=== PATIENT | male | born 1950 | race Caucasian/White ===

== ENCOUNTER 2024-04-13 09:22 | Observation (INO) | payer MEDICARE, MEDICAID, SELFPAY ==
[2024-04-13] VITALS (8 sets, daily range): BP systolic 99–161; BP diastolic 56–89; PULSE 61–98; RESP 16–18; TEMP 36.3–37.2; O2SAT 94–100; BMI 26.4
--- NOTE | 2024-04-13 10:04 | EDS_ITS ---
HPI HPI - GI History of Present Illness Chief Complaint: Nausea/Vomiting/Diarrhea Informant: patient and spouse/S.O. Narrative Narrative: 73-year-old male presenting with nausea, vomiting, diarrhea that started yesterday after feeling malaised. The vomiting and diarrhea really started at night, and he has had more than 10 bouts of each throughout the night and feels miserable. He has had some abdominal cramping nonlocalized that resolves after either having diarrhea or vomiting temporarily. No known fevers or chills. No known sick contacts. No travel out of the area recently, no hospitalization in the past couple weeks although back in January he had a cardiac ablation and then was admitted for Tikosyn induction. He denies any hematochezia or hematemesis. No dyspnea or chest discomfort. History of abdominal herniorrhaph y no other surgeries and none recently. No recent antibiotics for anything. No history of C. difficile that he knows of. No suspicious food ingestion such as undercooked meats or raw fish [facility] Medical History (Updated 04/13/24 @ 15:[address] Kelley Lutz MD) PAF (paroxysmal atrial fibrillation) GERD (gastroesophageal reflux disease) BPH (benign prostatic hyperplasia) Hyperlipidemia Home Medications ?Medication ?Instructions ?Recorded ?Last Taken ?Type cholecalciferol (vitamin D3) 25 1,000 unit PO QDAY 04/13/24 Unknown History mcg (1,000 unit) tablet (Vitamin D3) dofetilide 250 mcg capsule 250 mcg PO BID 04/13/24 Unknown History finasteride 5 mg tablet 5 mg PO 1700 04/13/24 Unknown History magnesium oxide 500 mg capsule 500 mg PO BID 04/13/24 Unknown History metoprolol succinate 25 mg capsule 25 mg PO DAILY 04/13/24 Unknown History sprinkle, ext. release 24 hr omeprazole 20 mg capsule,delayed 20 mg PO DAILY 04/13/24 Unknown History release rivaroxaban 20 mg tablet (Xarelto) 20 mg PO DAILY 04/13/24 Unknown History tamsulosin 0.4 mg capsule (Flomax) 0.4 mg PO DAILY 04/13/24 Unknown History Allergy/AdvReac Type Severity Reaction Status Date / Time No Known Allergies Allergy Verified 04/13/24 09:23 Surgical History History of prior ablation treatment Hx of knee surgery H/O transurethral resection of prostate Social History Smoking Status: Never smoker ROS ROS ED Constitutional Constitutional ED: Reports fatigue and malaise; Denies chills or fever(s) Eyes Eyes: Denies change in vision or diplopia ENT ENT ED: Denies rhinorrhea or sore throat Cardiovascular Cardiovascular: Denies chest pain or palpitations Respiratory/Chest Respiratory/Chest: Denies cough or dyspnea Gastrointestinal Gastrointestinal: Reports abdominal pain, diarrhea, nausea and vomiting; Denies hematemesis, hematochezia or melena Genitourinary Genitourinary ED: Denies dysuria or hematuria Musculoskeletal Musculoskeletal: Denies back pain or neck pain Integumentary Denies abscess or rash Neurologic Neurologic: Denies headache(s), paresthesias or weakness EXAM Physical Exam Const Vital Signs: 04/13/24 09:22 04/13/24 11:20 04/13/24 14:41 Temperature 97.4 F L 98.9 F Temperature Source Temporal Pulse Rate 61 67 69 Respiratory Rate 16 18 18 Blood Pressure 161/89 H 128/61 H 143/76 H Blood Pressure Mean 113 83 98 Pulse Ox 98 100 96 Oxygen Delivery Method Room Air Room Air Positive well nourished and well developed General Appearance ED: well developed and NAD HEENT Reports moist mucous membranes normocephalic and atraumatic Eyes PERRL and EOMs intact bilaterally Neck full ROM and supple Resp normal respiratory effort and clear to auscultation bilaterally Cardio regular rate, regular rhythm and no murmurs Rate: Negative for tachycardic GI non-tender and non-distended Auscultation: normoactive bowel sounds Palpation: soft Back/Spine no CVA tenderness General Back: other FROM Extremity normal to inspection General Extremety ED: Negative for edema, pulses abnormal or tenderness General Extremity: Negative for edema or pulses abnormal Neuro oriented x3, CN's II-XII intact bilaterally and no sensory deficits noted Sensorium / Orientation: awake and alert Motor Exam: strength 5/5 throughout Skin no rashes or lesions noted and no wounds MDM MDM MDM Narrative Medical decision making narrative: Patient presenting with syndrome consistent with gastroenteritis, there has been an outbreak of norovirus in the area recently, this patient may have that. He does not have any red flags for C. difficile or other bacterial invasive enteritis. However that does not mean they are not possible. The patient has had more nausea and vomiting here in emergency department and diarrhea. Labs are unremarkable except for some prerenal azotemia, but on reevaluation after ordering dicyclomine and Zofran and fluids, he is saying that he has severe pain more than he did at home. Therefore we sent him for a CT, I reviewed the images and report which I agree with, it is negative for any acute. Diverticulosis noted. He was given pain and nausea medication more so, but still unable to keep fluids down. Therefore discussed with hospitalist for inpatient stay. Lab Data Attestation: I reviewed the patient's lab results. Labs: Laboratory Results - last 24 hr 04/13/24 09:40 WBC 8.5 RBC 4.86 Hgb 14.6 Hct 44.1 MCV 90.7 MCH 30.0 MCHC 33.1 RDW Std Deviation 45.5 H RDW Coeff of Oliver 13.6 Plt Count 170 MPV 10.2 Immature Gran % (Auto) 1.300 H Neut % (Auto) 72.0 H Lymph % (Auto) 17.7 L Ness % (Auto) 8.0 Eos % (Auto) 0.5 Baso % (Auto) 0.5 Absolute Neuts (auto) 6.1 Absolute Lymphs (auto) 1.51 Nucleated RBC % 0 Sodium 138 Potassium 3.6 Chloride 104 Carbon Dioxide 27.0 Anion Gap 7 BUN 21 H Creatinine 1.15 Estim Creat Clear Calc 64.67 Est GFR (MDRD) Af Amer 80 Est GFR (MDRD) Non-Af 66 BUN/Creatinine Ratio 18.3 Glucose 122 H Calcium 9.4 Total Bilirubin 0.50 AST 17 ALT 30 Alkaline Phosphatase 71 Total Protein 7.4 Albumin 3.7 Globulin 3.7 Albumin/Globulin Ratio 1.0 Radiography Diagnostic Testing: Clinical Impression(s) from Imaging Studies Abdomen/Pelvis CT 04/13/24 11:14 IMPRESSION: 1. No acute findings in the abdomen or pelvis. 2. Diverticulosis along the sigmoid colon and lower descending colon without diverticulitis. 3. Enlarged central lobe of the prostate gland is at least BPH. 4. 5.8 cm cyst in segment 2 of the liver parenchyma and 1.1 cm cyst in segment 8 of the liver parenchyma are simple cysts. Electronically Signed: Andrzej Castillo MD at 12:39 EST , Management Discussion w/another healthcare provider: Hospitalist Discharge Plan Dx/Rx/DC Orders Clinical Impression: Intractable vomiting, Mild dehydration, Gastroenteritis Disposition Disposition: Acute Care Hospital [facility]
[2024-04-13 10:05] LABS: Absolute Lymphocyte Count 1.51 X10^3/uL (0.83-4.51); Absolute Neutrophil Count 6.1 X10^3/uL (2.0-7.7); Basophil# 0.04 X10^3/uL; Basophil% 0.5 % (0-1); Eosinophil# 0.04 X10^3/uL; Eosinophils% 0.5 % (0-5); Hematocrit 44.1 % (40-54); Hemoglobin 14.6 g/dL (13.0-16.5); Lymphocyte # 1.51 X10^3/ul (0.83-4.51); Lymphocyte % 17.7 % (19-41); Mean Corp Hgb Conc 33.1 g/dL (32-36); Mean Corpuscular Volume 90.7 fL (80-94); Mean Platelet Vol. 10.2 fl (6.2-12.0); Monocyte# 0.68 X10^3/uL; NRBC Flagged by Analyzer 0 % (0-5); Neutrophil # 6.14 X10^3/uL (2.7-7.7); Platelet Count 170 K/mm3 (150-450); RBC Distribution Width CV 13.6 % (11.6-14.6); RBC Distribution Width SD 45.5 fl (35.1-43.9); Red Blood Count 4.86 M/mm3 (4.6-6.2); White Blood Count 8.5 K/mm3 (4.4-11.0)
[2024-04-13] MEDS: 0.9% Normal Saline (1000mL) 1,000 ML 999 ML IV (10:09)
[2024-04-13] MEDS: Ondansetron 4 MG/2 ML Vial IV ×2 (10:09→12:47)
[2024-04-13 10:21] LABS: AST(SGOT) 17 U/L (15-37); Alanine Aminotransfer ALT/SGPT 30 U/L (16-61); Albumin, Serum 3.7 g/dL (3.2-5.0); Alkaline Phosphatase 71 U/L (45-117); Anion Gap 7 (5-15); BUN 21 mg/dL (7-18); BUN/Creat Ratio 18.3 RATIO (10-20); Calcium,Total 9.4 mg/dL (8.5-10.1); Chloride 104 mmol/L (98-107); Creatinine, Serum 1.15 mg/dL (0.70-1.30); EST Glomerular Filtration Rate 66 mL/min (>60); Est Glom Filt Rate - Afr Amer 80 mL/min (>60); Estimated Creatinine Clearance 64.67 ml/min; Globulin 3.7 g/dL (2.2-4.2); Glucose 122 mg/dL (74-106); Potassium 3.6 mmol/L (3.5-5.1); Protein, Total 7.4 g/dL (6.4-8.2); Sodium Level 138 mmol/L (136-145)
[2024-04-13] MEDS: Metoclopramide 10 MG/2 ML Vial 5 MG IV ×2 (11:10→14:39)
--- NOTE | 2024-04-13 11:14 | CT_ITS ---
EXAM: CT ABDOMEN AND PELVIS WITHOUT INTRAVENOUS CONTRAST CLINICAL INDICATION: n/v/d, severe lower abd pain TECHNIQUE: Helically acquired images were obtained of the abdomen and pelvis without intravenous contrast. This CT exam was performed using one or more of the following dose reduction techniques: automated exposure control, adjustment of the mA and/or kV according to patient size, and/or use of iterative reconstruction technique. RADIATION DOSE: CTDIvol = 11.90 mGy, DLP = 639.41 mGy-cm COMPARISON: No relevant prior studies available. FINDINGS: LOWER THORAX: Pulmonary hyperinflation with flattening of the hemidiaphragms. No cardiomegaly. No significant pericardial effusion. ABDOMEN: LIVER: 5.8 cm cyst in segment 2 of the liver parenchyma with CT number of 3.1 Hounsfield units. 1.1 cm low-attenuation cyst in segment 8 of the liver parenchyma with CT number of -0.55 Hounsfield units. GALLBLADDER AND BILE DUCTS: Unremarkable. No calcified gallstones. No gallbladder distention or wall edema. No intra- or extrahepatic biliary ductal dilation. PANCREAS: Unremarkable. No focal cystic mass. SPLEEN: Unremarkable. Normal size without focal cystic or solid mass. ADRENALS: Unremarkable. No nodules. KIDNEYS AND URETERS: Unremarkable. Normal renal size and position. No hydronephrosis. STOMACH AND BOWEL: Diverticula in the sigmoid colon and lower descending colon without diverticulitis. No stomach or bowel distention. PELVIS: APPENDIX: Normal. BLADDER: See below. REPRODUCTIVE: Enlarged central lobe of the prostate gland protruding into the posterior urinary bladder wall is at least BPH. ABDOMEN and PELVIS: INTRAPERITONEAL SPACE: Unremarkable. No ascites or other fluid collection. No free air. BONES/JOINTS: Unremarkable. No suspicious lytic or blastic abnormality. SOFT TISSUES: Unremarkable. No discrete abdominal or pelvic wall hernia. VASCULATURE: Unremarkable. Abdominal aorta is non-dilated. LYMPH NODES: Unremarkable. No enlarged lymph nodes. CT/Abdomen/Pelvis without Cont IMPRESSION: 1. No acute findings in the abdomen or pelvis. 2. Diverticulosis along the sigmoid colon and lower descending colon without diverticulitis. 3. Enlarged central lobe of the prostate gland is at least BPH. 4. 5.8 cm cyst in segment 2 of the liver parenchyma and 1.1 cm cyst in segment 8 of the liver parenchyma are simple cysts. Electronically Signed: Andrzej Castillo MD at 12:39 EST ,
[2024-04-13] MEDS: Morphine 2 MG/ML Syringe IV ×2 (11:18→14:40)
[2024-04-13] MEDS: Dicyclomine 20 MG/2 ML Vial IM (11:34)
[2024-04-13] MEDS: 0.9% Normal Saline (1000mL) 1,000 ML 200 ML IV (14:39)
--- NOTE | 2024-04-13 15:05 | PCM.HP.STD ---
HPI - General General Date of Admission: 04/13/24 Date of Service: 04/13/24 Chief Complaint: N/V/D HPI Narrative The patient is a 73 y/o M w/ PMHx: BPH with obstructive pathology, GERD, PAF who presents to the [facility] ED on 04/13/24 with history of persistent nausea, emesis and diarrhea as well as general fatigue and malaise starting the day prior with more than 10 bouts through the evening with abdominal cramping associated although this resolves after his bouts of nausea and emesis temporarily with no recent fevers or chills no any recent ill contacts with no recent antibiotic therapies or abnormal food ingestion but not improving prompting eventual ED evaluation be cautious. Patient's is present and denies having any symptoms herself. Workup in the ED included T97.4, heart rate 61, BP 161/89, respiratory rate 16, 98% on room air with most recent repeat vitals T98.9, heart rate 69, BP 143/76, respiratory rate 18, 96% room air, CBC with WBC 8.5, hemoglobin 14.6, platelet 170 with increased immature granulocytes, CMP with BUN/creatinine 21/1.15, GFR 66, glucose 122 otherwise unremarkable, CT abdomen and pelvis with no acute findings, diverticulosis along the sigmoid colon and lower descending colon without any diverticulitis, enlarged central lobe of the prostate gland consistent with BPH at least, 5.8 cm cyst in the segment 2 liver parenchyma and 1.1 cm cyst in the segment 8 of the liver parenchyma consistent with simple cyst. In the ED patient ministered Zofran 4 mg IV x 2, morphine 2 mg IV x 2, Reglan 5 mg IV x 2, Bentyl 20 mg p.o. x 1 followed up by 20 mg IM x 1 in addition to IV fluids with a total of 2 L. [facility] Medical History PAF (paroxysmal atrial fibrillation) GERD (gastroesophageal reflux disease) BPH (benign prostatic hyperplasia) Hyperlipidemia Home Medications ?Medication ?Instructions ?Recorded ?Last Taken ?Type cholecalciferol (vitamin D3) 25 1,000 unit PO QDAY 04/13/24 Unknown History mcg (1,000 unit) tablet (Vitamin D3) dofetilide 250 mcg capsule 250 mcg PO BID 04/13/24 Unknown History finasteride 5 mg tablet 5 mg PO 1700 04/13/24 Unknown History magnesium oxide 500 mg capsule 500 mg PO BID 04/13/24 Unknown History metoprolol succinate 25 mg capsule 25 mg PO DAILY 04/13/24 Unknown History sprinkle, ext. release 24 hr omeprazole 20 mg capsule,delayed 20 mg PO DAILY 04/13/24 Unknown History release rivaroxaban 20 mg tablet (Xarelto) 20 mg PO DAILY 04/13/24 Unknown History tamsulosin 0.4 mg capsule (Flomax) 0.4 mg PO DAILY 04/13/24 Unknown History Allergy/AdvReac Type Severity Reaction Status Date / Time No Known Allergies Allergy Verified 04/13/24 09:23 Family History (Updated 04/13/24 @ 15:[address] Kelley Lutz MD) Father No problems noted. Mother Alzheimer dementia Surgical History History of prior ablation treatment Hx of knee surgery H/O transurethral resection of prostate Social History (Updated 04/13/24 @ 15:[address] Kelley uLtz MD) household members: spouse Smoking Status: Never smoker alcohol intake: current alcohol intake frequency: holidays/special occasions only substance use type: does not use ROS ROS Narrative Admission Review of Systems: CONSTITUTIONAL: No weight loss, fever, chills, + weakness or fatigue. HEENT: Eyes: No visual loss, blurred vision, double vision or yellow sclerae. Ears, Nose, Throat: No hearing loss, sneezing, congestion, runny nose or sore throat. SKIN: No rash or itching, lesions, wounds. CARDIOVASCULAR: No chest pain, chest pressure or chest discomfort, palpitations, edema, orthopnea, syncopal events. RESPIRATORY: No shortness of breath, cough or sputum, wheezing, hemoptysis. GASTROINTESTINAL: + Anorexia, nausea, vomiting, diarrhea, abdominal cramping. No melena, BRBPR. GENITOURINARY: No dysuria, frequency, urgency or retention. NEUROLOGICAL: No headache, dizziness, syncope, paralysis, ataxia, numbness or tingling in the extremities, focal weakness, change in bowel or bladder control, seizure. MUSCULOSKELETAL: + muscle, back pain, joint pain or stiffness. HEMATOLOGIC: No anemia. Easy bleeding/bruising. LYMPHATICS: No enlarged nodes. No history of splenectomy. PSYCHIATRIC: No history of depression or anxiety. ENDOCRINOLOGIC: No reports of sweating, cold or heat intolerance. No polyuria or polydipsia. ALLERGIES: No history of asthma, hives, eczema or rhinitis. Vital Signs Vital Signs Vital Signs: 04/13/24 09:22 04/13/24 11:20 04/13/24 14:41 Temperature 97.4 F L 98.9 F Temperature Source Temporal Pulse Rate 61 67 69 Respiratory Rate 16 18 18 Blood Pressure 161/89 H 128/61 H 143/76 H Blood Pressure Mean 113 83 98 Pulse Ox 98 100 96 Oxygen Delivery Method Room Air Room Air Weight Weight: 195 lb 2 oz Body Mass Index (BMI) 26.4 Physical Exam Narrative Physical Examination: General: Awake, alert, oriented x 3 and cooperative, laying on his side in the ED bed, fatigued and ill-appearing. Skin: Normal color, normal turgor, no icterus, no cyanosis except for occasional stage ecchymoses HEENT: AT/NC, EOMI, PERRLA, dry MM, no carotid bruits or JVD noted. Lungs: Mildly diminished, greater bases, proper effort, no rales, ronchi or wheezing. Heart: Regular rate and rhythm; no gallop, rub audible. Abdomen: Soft, NTTP, mildly distended tympanitic, hyperactive BS, no appreciated HSM. Extremities: No cyanosis, clubbing, or edema. Neurological: Patient awake, alert, oriented as noted, cognitive function intact; pupils equally reactive to light and accommodation, cranial nerves grossly normal, moving all 4 extremities, no focal deficits, strength moderately globally decreased secondary to acute presentation. Psychiatric: Affect appears flat, fatigued, ill-appearing, no acute evidence of depressive or anxiety feelings. Results Lab / Micro Data 04/13/24 09:40 04/13/24 09:40 Labs: Laboratory Results - last 24 hr 04/13/24 09:40: WBC 8.5, RBC 4.86, Hgb 14.6, Hct 44.1, MCV 90.7, MCH 30.0, MCHC 33.1, RDW Std Deviation 45.5 H, RDW Coeff of Oliver 13.6, Plt Count 170, MPV 10.2, Immature Gran % (Auto) 1.300 H, Neut % (Auto) 72.0 H, Lymph % (Auto) 17.7 L, Lewis % (Auto) 8.0, Eos % (Auto) 0.5, Baso % (Auto) 0.5, Absolute Neuts (auto) 6.1, Absolute Lymphs (auto) 1.51, Nucleated RBC % 0, Sodium 138, Potassium 3.6, Chloride 104, Carbon Dioxide 27.0, Anion Gap 7, BUN 21 H, Creatinine 1.15, Estim Creat Clear Calc 64.67, Est GFR (MDRD) Af Amer 80, Est GFR (MDRD) Non-Af 66, BUN/Creatinine Ratio 18.3, Glucose 122 H, Calcium 9.4, Total Bilirubin 0.50, AST 17, ALT 30, Alkaline Phosphatase 71, Total Protein 7.4, Albumin 3.7, Globulin 3.7, Albumin/Globulin Ratio 1.0 Imaging Radiology Impression Abdomen/Pelvis CT 04/13/24 11:14 IMPRESSION: 1. No acute findings in the abdomen or pelvis. 2. Diverticulosis along the sigmoid colon and lower descending colon without diverticulitis. 3. Enlarged central lobe of the prostate gland is at least BPH. 4. 5.8 cm cyst in segment 2 of the liver parenchyma and 1.1 cm cyst in segment 8 of the liver parenchyma are simple cysts. Electronically Signed: Andrzej Castillo MD at 12:39 EST , Assessment & Plan Assessment/Plan (1) Gastroenteritis: PLAN: Plan The patient is a 73 y/o M w/ PMHx: BPH with obstructive pathology, GERD, PAF who presents to the [facility] ED on 04/13/24 with history of persistent nausea, emesis and diarrhea as well as general fatigue and malaise starting the day prior with more than 10 bouts through the evening with abdominal cramping associated although this resolves after his bouts of nausea and emesis temporarily with no recent fevers or chills no any recent ill contacts with no recent antibiotic therapies or abnormal food ingestion but not improving prompting eventual ED evaluation be cautious. #1. N/V/D, Gastroenteritis: Will admit to MS, will continue aggressive hydration, will obtain c-diff, stool cx, O+P with repeat AM CBC. Will maintain on clear liquids until clinically improving. Will trial Haldol 0.5 mg IV x 1 given intractable nausea and if effective may consider dosing for an additional 2-3 doses. Will maintain on IV PPI. Will not start antibiotics at this time given unclear source pending stool studies as may be viral gastroenteritis. Anti-emetics, pain regimen PRN. #2. PAF: We will continue patient dofetilide as well as home Xarelto regimen and metoprolol as able, unfortunately with intractable nausea and vomiting if not improving may need to transition to subcu versus IV regimen temporarily if needed. #3. GERD: Given current presentation until clinically improving will maintain on IV PPI. #4. BPH with obstructive pathology: We will continue patient on Flomax and finasteride regimen #5. DVT prophylaxis: Will attempt to maintain on Xarelto however if unable to tolerate will transition to subcu regimen. Charges/Coding Visit Charges Inpatient E&M: 66090 Init Hosp L2
[2024-04-13 16:05] LABS: Magnesium 2.1 mg/dL (1.6-2.6); Phosphorus 2.9 mg/dL (2.5-4.9)
[2024-04-13] MEDS: 0.9% Normal Saline (1000mL) 1,000 ML 100 ML IV (18:56)
[2024-04-13] MEDS: Haloperidol Lactate 5 MG/ML Vial IV (18:56)
[2024-04-13] MEDS: Dofetilide 250 MCG Capsule PO (20:38)
[2024-04-13] MEDS: MELATONIN 3 MG TABLET PO (20:38)
[2024-04-13] MEDS: Dicyclomine 10 MG Capsule PO ×2 (20:38→23:37)
[2024-04-13] MEDS: Finasteride 5 MG Tablet PO (20:39)
[2024-04-13] MEDS: Acetaminophen 325 MG Tablet 650 MG PO (20:39)
[2024-04-13] MEDS: Pantoprazole Sodium 40 MG in 0.9% Normal Saline (100mL MB+) 100 ML 330 MG IV (20:41)
[2024-04-14 02:31] VITALS: PULSE 79
[2024-04-14 03:10] VITALS: BMI 26.1
[2024-04-14] MEDS: 0.9% Normal Saline (1000mL) 1,000 ML 100 ML IV (05:49)
[2024-04-14 05:51] VITALS: BP 120/69; PULSE 68; RESP 16; TEMP 36.7; O2SAT 95
[2024-04-14] MEDS: Dicyclomine 10 MG Capsule PO (06:02)
[2024-04-14 06:24] LABS: Absolute Lymphocyte Count 1.66 X10^3/uL (0.83-4.51); Absolute Neutrophil Count 6.2 X10^3/uL (2.0-7.7); Basophil# 0.02 X10^3/uL; Basophil% 0.2 % (0-1); Eosinophil# 0.02 X10^3/uL; Eosinophils% 0.2 % (0-5); Hematocrit 39.3 % (40-54); Lymphocyte # 1.66 X10^3/ul (0.83-4.51); Lymphocyte % 19.1 % (19-41); Mean Corp Hgb Conc 33.1 g/dL (32-36); Mean Corpuscular Hgb 29.5 pg (27.0-32.0); Mean Corpuscular Volume 89.3 fL (80-94); Mean Platelet Vol. 9.8 fl (6.2-12.0); Monocyte# 0.73 X10^3/uL; Monocyte% 8.4 % (0-10); NRBC Flagged by Analyzer 0 % (0-5); Neutrophil % 71.4 % (47-70); Platelet Count 161 K/mm3 (150-450); RBC Distribution Width CV 13.9 % (11.6-14.6); RBC Distribution Width SD 45.1 fl (35.1-43.9); White Blood Count 8.7 K/mm3 (4.4-11.0)
[2024-04-14 06:59] LABS: AST(SGOT) 16 U/L (15-37); Alanine Aminotransfer ALT/SGPT 25 U/L (16-61); Albumin, Serum 3.1 g/dL (3.2-5.0); Alkaline Phosphatase 54 U/L (45-117); Anion Gap 5 (5-15); BUN 13 mg/dL (7-18); BUN/Creat Ratio 12.4 RATIO (10-20); Calcium,Total 8.4 mg/dL (8.5-10.1); Chloride 112 mmol/L (98-107); Creatinine, Serum 1.05 mg/dL (0.70-1.30); EST Glomerular Filtration Rate 74 mL/min (>60); Est Glom Filt Rate - Afr Amer 89 mL/min (>60); Estimated Creatinine Clearance 70.83 ml/min; Glucose 96 mg/dL (74-106); Potassium 3.6 mmol/L (3.5-5.1); Protein, Total 6.1 g/dL (6.4-8.2); Sodium Level 140 mmol/L (136-145)
[2024-04-14 07:45] VITALS: O2SAT 94
[2024-04-14 08:00] VITALS: PULSE 72
[2024-04-14] MEDS: Pantoprazole Sodium 40 MG in 0.9% Normal Saline (100mL MB+) 100 ML 330 MG IV (08:06)
[2024-04-14 08:07] VITALS: PULSE 72
[2024-04-14] MEDS: Dofetilide 250 MCG Capsule PO (08:07)
[2024-04-14] MEDS: Metoprolol(XL)Succ 25 MG Tablet PO (08:07)
[2024-04-14 09:10] VITALS: BP 133/75; PULSE 74; RESP 18; TEMP 36.8; O2SAT 95
--- NOTE | 2024-04-14 10:11 | DCINST_ITS ---
Discharge Instructions Diet Discharge Diet: No restrictions DC O2, CPAP, BIPAP needs Home O2 Discharge instructions: No Dressing / Incision Discharge Activity: Return to Normal Activity Weight Bearing Status: Full weight bearing Follow Up Care Test Results: Test results from this visit will be discussed in further detail at your follow- up appointment, if applicable. Discharge Plan Admission Admit Date/Time: 04/13/24 15:07 Primary Reason for Your Visit: viral gastroenteritis Attending Provider: Arnie Sainz Primary Care Provider: Care Physician,No Primary Consulting Providers: Kelley Lutz Instructions Additional Instructions / Restrictions: You may take Imodium 4mg three or four times a day if needed for diarrhea if you desire Discharge Orders/Prescriptions Prescriptions: New ondansetron HCl 8 mg tablet 8 mg PO Q8H PRN (Reason: nausea and vomiting) Qty: 15 0RF Continued metoprolol succinate 25 mg capsule,sprinkle,ER 24hr 25 mg PO DAILY Xarelto 20 mg tablet 20 mg PO DAILY Rx Instructions: must administer with evening meal tamsulosin [Flomax] 0.4 mg capsule 0.4 mg PO DAILY finasteride 5 mg tablet 5 mg PO 1700 dofetilide 250 mcg capsule 250 mcg PO BID magnesium oxide 500 mg capsule 500 mg PO BID cholecalciferol (vitamin D3) [Vitamin D3] 25 mcg (1,000 unit) tablet 1,000 unit PO QDAY omeprazole 20 mg capsule,delayed release(DR/EC) 20 mg PO DAILY Referrals / Follow Up: Care Physician,No Primary [Primary Care Provider] - NOT,DEFINED [Non-Staff] - Disposition Disposition (needs filled in before D/C Order can be placed): Home, Self Care
--- NOTE | 2024-04-14 10:16 | PCM.DC.SUM ---
Providers Date of Admission: 04/13/24 Date of Discharge: 04/14/24 Primary Care Physician: No Primary Care Phys Reason For Visit: N/V/D, GASTRO Diagnosis Discharge Diagnosis (1) Gastroenteritis: Status: Acute Code(s): K52.9 - Noninfective gastroenteritis and colitis, unspecified Plan #1 Viral gastroenteritis #2 Dehydration Medications at Discharge Home Medications cholecalciferol (vitamin D3) 25 mcg (1,000 unit) tablet (Vitamin D3) 1,000 unit PO QDAY 04/13/24 dofetilide 250 mcg capsule 250 mcg PO BID 04/13/24 finasteride 5 mg tablet 5 mg PO 1700 04/13/24 magnesium oxide 500 mg capsule 500 mg PO BID 04/13/24 metoprolol succinate 25 mg capsule sprinkle, ext. release 24 hr 25 mg PO DAILY 04/13/24 omeprazole 20 mg capsule,delayed release 20 mg PO DAILY 04/13/24 rivaroxaban 20 mg tablet (Xarelto) 20 mg PO DAILY 04/13/24 tamsulosin 0.4 mg capsule (Flomax) 0.4 mg PO DAILY 04/13/24 ondansetron HCl 8 mg tablet 8 mg PO Q8H PRN nausea and vomiting #15 tabs 04/14/24 Hospital Course Operations None Procedures None Summary of Care Provided Minutes Spent on Discharge: 30 Hospital Course: This 73-year-old Latin male was seen in the emergency room at [facility] with complaints of nausea vomiting and diarrhea which started the day before. Patient denied any fevers or chills. Workup in the emergency room included CBC which showed a normal white blood cell count, chemistry profile showed a slightly elevated BUN and a normal creatinine. Abdominal and pelvic CT showed diverticulosis and hepatic cysts. Patient was placed in observation status on MedSurg 3 and given IV fluids, the next day his condition improved and he was able to eat, he had no nausea and vomiting or diarrhea. On 04/14/2024, patient was seen and examined: On examination he appeared in good health and spirits. Vital signs as documented. Skin warm and dry and without overt rashes. Neck without JVD, neck was supple, trachea midline, thyroid was normal. Lungs clear bilaterally, normal air movement was noted. Heart exam notable for regular rhythm, normal sounds and absence of murmurs, rubs or gallops. Abdomen unremarkable and without evidence of organomegaly, masses, or abdominal aortic enlargement. Bowel sounds are present, abdomen is not distended. Extremities nonedematous, no cyanosis was noted, no clubbing was noted. Neuro: Cranial nerves II through XII are grossly intact, no focal motor deficits were noted, sensation to light touch and pinprick intact, motor exam 5/5 throughout. Psych: Patient is alert and oriented x3, he does not appear anxious or depressed, he does not appear agitated. Patient was discharged home in stable condition on 04/14/2024 Weight / BMI Weight Weight: 87.36 kg Body Mass Index (BMI) 26.1 ABG / Lab / Microbiology Data 04/14/24 06:14 04/14/24 06:14 Laboratory: Laboratory Results - last 24 hr 04/13/24 09:40: Sodium 138, Potassium 3.6, Chloride 104, Carbon Dioxide 27.0, Anion Gap 7, BUN 21 H, Creatinine 1.15, Estim Creat Clear Calc 64.67, Est GFR (MDRD) Af Amer 80, Est GFR (MDRD) Non-Af 66, BUN/Creatinine Ratio 18.3, Glucose 122 H, Calcium 9.4, Phosphorus 2.9, Magnesium 2.1, Total Bilirubin 0.50, AST 17, ALT 30, Alkaline Phosphatase 71, Total Protein 7.4, Albumin 3.7, Globulin 3.7, Albumin/Globulin Ratio 1.0 04/14/24 06:14: WBC 8.7, RBC 4.40 L, Hgb 13.0, Hct 39.3 L, MCV 89.3, MCH 29.5, MCHC 33.1, RDW Std Deviation 45.1 H, RDW Coeff of Oliver 13.9, Plt Count 161, MPV 9.8, Immature Gran % (Auto) 0.700, Neut % (Auto) 71.4 H, Lymph % (Auto) 19.1, [place] % (Auto) 8.4, Eos % (Auto) 0.2, Baso % (Auto) 0.2, Absolute Neuts (auto) 6.2, Absolute Lymphs (auto) 1.66, Nucleated RBC % 0, Sodium 140, Potassium 3.6, Chloride 112 H, Carbon Dioxide 23.0, Anion Gap 5, BUN 13, Creatinine 1.05, Estim Creat Clear Calc 70.83, Est GFR (MDRD) Af Amer 89, Est GFR (MDRD) Non-Af 74, BUN/Creatinine Ratio 12.4, Glucose 96, Calcium 8.4 L, Total Bilirubin 0.60, AST 16, ALT 25, Alkaline Phosphatase 54, Total Protein 6.1 L, Albumin 3.1 L, Globulin 3.0, Albumin/Globulin Ratio 1.0 Radiography Diagnostic Testing: Radiology Impression Abdomen/Pelvis CT 04/13/24 11:14 IMPRESSION: 1. No acute findings in the abdomen or pelvis. 2. Diverticulosis along the sigmoid colon and lower descending colon without diverticulitis. 3. Enlarged central lobe of the prostate gland is at least BPH. 4. 5.8 cm cyst in segment 2 of the liver parenchyma and 1.1 cm cyst in segment 8 of the liver parenchyma are simple cysts. Electronically Signed: Andrzej Castillo MD at 12:39 EST Reading Location ID and State: [address] [place] [address] , Service support , D/C Instructions Discharge Diet: No restrictions Weight Bearing Status: Full weight bearing DC O2, CPAP, BIPAP Needs Home O2 Discharge instructions: No Meaningful Use Info Meaningful Use Meaningful Use Diagnoses (Choose all that apply): None applicable Ischemic Stroke Statin Dosing Therapy Reference: STATIN DOSE THERAPY REFERENCE: * Patients > 75 years receive moderate or high dose statin therapy. * Patients 75 years or YOUNGER should receive HIGH intensity statin dose unless contraindicated. You will be required to document reason for non-treatment if statin daily dose does not meet guidelines. HIGH DOSE STATIN THERAPY DAILY Atorvastatin > than or = to 40 mg Rosuvastatin > than or = to 20 mg Amlodipine + Atorvastatin > than or = to 2.5/40 mg Ezetimibe + Simvastatin 10/80 mg Simvastatin 80mg Discharge Plan Admission Admit Date/Time: 04/13/24 15:07 Primary Reason for Your Visit: viral gastroenteritis Attending Provider: Arnie Sainz Primary Care Provider: Care Physician,No Primary Consulting Providers: Kelley Lutz Instructions Additional Instructions / Restrictions: You may take Imodium 4mg three or four times a day if needed for diarrhea if you desire Discharge Orders/Prescriptions Prescriptions: New ondansetron HCl 8 mg tablet 8 mg PO Q8H PRN (Reason: nausea and vomiting) Qty: 15 0RF Continued metoprolol succinate 25 mg capsule,sprinkle,ER 24hr 25 mg PO DAILY Xarelto 20 mg tablet 20 mg PO DAILY Rx Instructions: must administer with evening meal tamsulosin [Flomax] 0.4 mg capsule 0.4 mg PO DAILY finasteride 5 mg tablet 5 mg PO 1700 dofetilide 250 mcg capsule 250 mcg PO BID magnesium oxide 500 mg capsule 500 mg PO BID cholecalciferol (vitamin D3) [Vitamin D3] 25 mcg (1,000 unit) tablet 1,000 unit PO QDAY omeprazole 20 mg capsule,delayed release(DR/EC) 20 mg PO DAILY Referrals / Follow Up: Care Physician,No Primary [Primary Care Provider] - NOT,DEFINED [Non-Staff] - Disposition Disposition (needs filled in before D/C Order can be placed): Home, Self Care Charges/Coding Visit Charges Inpatient E&M: 39690 Disch Hosp
== END 2024-04-14 11:43 | disposition home or self-care (01) ==
LOC: ED 15:17 → MS3 17:54
PROVIDERS: Admitting Provider Family Medicine; Emergency Provider Emergency Medicine; Visit Provider Internal Medicine
DX: A08.4 Viral intestinal infection, unspecified (principal); I48.0 Paroxysmal atrial fibrillation; E86.0 Dehydration; K21.9 Gastro-esophageal reflux disease without esophagitis; E78.5 Hyperlipidemia, unspecified; N40.1 Benign prostatic hyperplasia with lower urinary tract symptoms; Z79.899 Other long term (current) drug therapy; Z79.01 Long term (current) use of anticoagulants; N13.8 Other obstructive and reflux uropathy
CPT/HCPCS: 36415; 74176; 80053; 83735; 84100; 85025; 96361; 96365; 96366; 96375; 96376; 99221; 99284; A4216; G0378; J2405

== ENCOUNTER → 2024-06-26 | Outpatient (CLI) | payer MEDICARE, SELFPAY ==
[2024-06-26 07:11] LABS: Cholesterol 224 mg/dL (<=200); High Density Lipoprotein 40 mg/dL; Low Density Lipoprotein Calc. 131 mg/dL; Magnesium 2.1 mg/dL (1.5-2.2); Triglycerides 267 mg/dL; Very Low Density Lipoprotein 53 mg/dL (5-40); cholesterol:hdl ratio screen 5.63
== END | disposition home or self-care (01) ==
LOC: LAB 06:31
PROVIDERS: Referring Provider Internal Medicine Cardiovascular Disease; Visit Provider Internal Medicine Cardiovascular Disease
DX: E78.5 Hyperlipidemia, unspecified (principal); I48.0 Paroxysmal atrial fibrillation; I47.20 Ventricular tachycardia, unspecified; I48.19 Other persistent atrial fibrillation; Z98.890 Other specified postprocedural states
CPT/HCPCS: 36415; 80061; 83735

== ENCOUNTER → 2024-07-18 | Outpatient (CLI) | payer MEDICARE, SELFPAY ==
--- NOTE | 2024-07-18 17:20 | STRESSREP ---
Stress Test Report Date: 07/18/2024 Procedure: Exercise tolerance test/imaging study Indications: Dyspnea on exertion Consent: Per the patient Procedure: The patient exercised on a Alexander protocol for 4 minutes and 55 seconds achieving a peak heart rate of 126 bpm (85% predicted maximal heart rate) with a peak blood pressure 156/72 mmHg and a peak MET capacity of 7.0 METs. The baseline ECG demonstrated sinus rhythm with frequent PVCs. The peak exercise ECG sinus tachycardia with no ischemic changes. Frequent PVCs noted. The functional capacity was considered very good for age. There was no complaint of chest discomfort during exercise or recovery. The examination was discontinued secondary to target heart rate being achieved. The patient was injected with 14.6 mCi of technetium 99m Cardiolite and subsequently rest SPECT Cardiolite nuclear imaging was obtained in the horizontal long, vertical long, and short axis views. Post-exercise, the patient was injected with 44.3 mCi of technetium 99m Cardiolite and subsequently stress SPECT Cardiolite nuclear imaging was obtained in the horizontal long, vertical long, and short axis views. A gated Cardiolite study at peak stress was obtained. Rest and stress SPECT Cardiolite nuclear imaging status post realignment, normalization, and attenuation correction, demonstrates the appearance of relative uniform tracer uptake and myocardial perfusion appearing within normal limits. There is end systolic thickening and brightening. The gated Cardiolite study demonstrates myocardial thickening and inward wall motion. The reported LVEF is 63%. Impression: 1. Technically adequate (percent predicted maximal heart rate greater than 85%) exercise tolerance test 2. Peak exercise ECG with no ischemic changes. 3. Frequent PVCs at baseline and with exercise. No ventricular runs noted. 4. Rest and stress SPECT Cardiolite nuclear imaging demonstrate relative uniform tracer uptake and myocardial perfusion appearing within normal limits. 5. The gated Cardiolite study reports an LVEF of 63%. This note was generated with [employer] software. It may contain incorrect words, spelling, and punctuation that were not noted in checking the note before signing.
== END | disposition home or self-care (01) ==
LOC: CVS 06:54
PROVIDERS: Referring Provider Internal Medicine Cardiovascular Disease; Visit Provider Internal Medicine Cardiovascular Disease
DX: R06.09 Other forms of dyspnea (principal); I42.9 Cardiomyopathy, unspecified; R06.02 Shortness of breath
CPT/HCPCS: 78452; 93017; A9500; A4216

== ENCOUNTER 2024-08-16 11:26 | Emergency (ER) | payer MEDICARE, SELFPAY ==
[2024-08-16 11:27] VITALS: BP 150/75; PULSE 73; RESP 20; TEMP 36.6; O2SAT 100
[2024-08-16 12:14] LABS: Absolute Lymphocyte Count 1.15 X10^3/uL (0.83-4.51); Absolute Neutrophil Count 10.2 X10^3/uL (2.0-7.7); Basophil# 0.03 X10^3/uL; Basophil% 0.2 % (0-1); Eosinophil# 0.03 X10^3/uL; Eosinophils% 0.2 % (0-5); Hematocrit 43.6 % (40-54); Hemoglobin 14.7 g/dL (13.0-16.5); Lymphocyte # 1.15 X10^3/ul (0.83-4.51); Lymphocyte % 9.5 % (19-41); Mean Corp Hgb Conc 33.7 g/dL (32-36); Mean Corpuscular Hgb 29.8 pg (27.0-32.0); Mean Corpuscular Volume 88.3 fL (80-94); Mean Platelet Vol. 10.4 fl (6.2-12.0); Monocyte# 0.63 X10^3/uL; Monocyte% 5.2 % (0-10); NRBC Flagged by Analyzer 0 % (0-5); Neutrophil # 10.16 X10^3/uL (2.7-7.7); Neutrophil % 84.1 % (47-70); Platelet Count 164 K/mm3 (150-450); RBC Distribution Width CV 13.2 % (11.6-14.6); RBC Distribution Width SD 42.7 fl (35.1-43.9); Red Blood Count 4.94 M/mm3 (4.6-6.2); White Blood Count 12.1 K/mm3 (4.4-11.0)
--- NOTE | 2024-08-16 12:16 | EKG12_ITS ---
Test Reason : N/V Blood Pressure : */* mmHG Vent. Rate : 67 BPM Atrial Rate : 67 BPM P-R Int : 156 ms QRS Dur : 88 ms QT Int : 414 ms P-R-T Axes : 0 39 2 degrees QTcB Int : 437 ms Normal sinus rhythm Normal ECG Confirmed by LATA YARBROUGH, NICHOLAS ([id number]), school photograph editor MARJORIE AVILA ([id number]) on 08/20/2024 8:38:51 AM Referred By: Confirmed By: NICHOLAS GUIDO MD
[2024-08-16] MEDS: Ondansetron 4 MG/2 ML Vial IV (12:21)
[2024-08-16] MEDS: 0.9% Normal Saline (1000mL) 1,000 ML 999 ML IV (12:21)
[2024-08-16] MEDS: Pantoprazole Sodium 40 MG in 0.9% Normal Saline (100mL MB+) 100 ML 330 MG IV (12:35)
--- NOTE | 2024-08-16 12:48 | EX.ED.DYSGE1 ---
HPI History of Present Illness Chief Complaint: Nausea/Vomiting/Diarrhea Informant: patient and spouse/S.O. Narrative Narrative: Patient 74-year-old male with history of coronary artery disease, atrial fibrillation (on Xarelto), cardiomyopathy and PTSD presenting with nausea, vomiting and diarrhea. Patient states his symptoms started 3 days ago when he was feeling sick and had diarrhea. Yesterday and today he had nausea that developed in multiple's of the vomiting. He has diffuse abdominal discomfort and since throwing up he started to have some chest discomfort. He states the abdominal pain feels cramping in nature. He denies any vomiting his blood or stool. Does feel bloated has history of prior abdominal surgeries including appendectomy and hernia repair (inguinal and umbilical). He has been having some incomplete bladder emptying but attributes that to getting low on his Flomax (not taking it every other day). He denies any fever. No sick contacts reported. States has had prior symptoms like this before but they were not able to figure out what caused it. Tried to take nausea medicine at home but threw it up. No other complaints or concerns reported at this time. [facility] Medical History SOB (shortness of breath) on exertion custodial (current) use of anticoagulants Tinnitus of both ears Atherosclerosis of aorta Prostate cancer Atrial flutter Persistent atrial fibrillation Cardiomyopathy Paroxysmal ventricular tachycardia Aortic valve regurgitation, nonrheumatic PTSD (post-traumatic stress disorder) Kidney stones Non-smoker Atrial fibrillation PAF (paroxysmal atrial fibrillation) GERD (gastroesophageal reflux disease) BPH (benign prostatic hyperplasia) Gastroenteritis Hyperlipidemia Home Medications ?Medication ?Instructions ?Recorded ?Last Taken ?Type cholecalciferol (vitamin D3) 25 1,000 unit PO QDAY 04/13/24 08/15/24 History mcg (1,000 unit) tablet (Vitamin D3) finasteride 5 mg tablet 5 mg PO 1700 04/13/24 08/15/24 History omeprazole 20 mg capsule,delayed 20 mg PO DAILY 04/13/24 08/15/24 History release tamsulosin 0.4 mg capsule (Flomax) 0.4 mg PO DAILY 04/13/24 08/15/24 History saw palmetto 1 cap PO DAILY 06/14/24 08/15/24 History rivaroxaban 20 mg tablet (Xarelto) 20 mg PO DAILY #90 tabs 07/30/24 08/15/24 Rx ascorbic acid (vitamin C) 500 mg 500 mg PO DAILY 08/16/24 08/15/24 History chewable tablet (Acerola C) dicyclomine 10 mg capsule 20 mg (2 x 10 mg) PO TIDAC PRN 08/16/24 Unknown Rx abdominal pain #20 CAPSULES promethazine 12.5 mg rectal 12.5 mg HI TID PRN nausea and 08/16/24 Unknown Rx suppository vomiting #6 ea promethazine 25 mg tablet 25 mg PO Q6H PRN nausea and 08/16/24 Unknown Rx vomiting #10 tabs tamsulosin 0.4 mg capsule (Flomax) 0.4 mg PO DAILY #7 caps 08/16/24 Unknown Rx Allergy/AdvReac Type Severity Reaction Status Date / Time No Known Allergies Allergy Verified 08/16/24 11:29 Family History Father No problems noted. Mother Alzheimer dementia Surgical History History of arthroscopic surgery of shoulder History of ear surgery History of cardiac radiofrequency ablation History of prior ablation treatment Hx of knee surgery H/O transurethral resection of prostate Social History household members: spouse current occupational status: retired current occupation: artist/teacher Smoking Status: Never smoker alcohol intake: current alcohol intake frequency: a few times a month substance use type: does not use caffeine: Yes Type: coffee Number of servings: 1 what type of physical activity do you participate in: walking ROS ROS ED Constitutional Constitutional ED: Denies chills, fever(s) or weight loss Cardiovascular Cardiovascular: Reports chest pain and other Details: reports chest pain after vomiting Respiratory/Chest Respiratory/Chest: Denies cough or dyspnea Gastrointestinal Gastrointestinal: Reports abdominal pain, diarrhea, nausea and vomiting; Denies melena Genitourinary Genitourinary ED: Denies dysuria or hematuria Musculoskeletal Musculoskeletal: Denies back pain or myalgias Integumentary Denies rash Neurologic Neurologic: Reports weakness; Denies headache(s) Hematologic/Lymphatic Hematologic/Lymphatic: Reports easy bleeding and easy bruising EXAM Physical Exam Const Vital Signs: 08/16/24 11:27 08/16/24 13:38 08/16/24 15:00 Temperature 98 F Temperature Source Temporal Pulse Rate 73 68 69 Respiratory Rate 20 H 17 17 Blood Pressure 150/75 H 118/53 L 122/56 H Blood Pressure Mean 100 74 78 Pulse Ox 100 98 98 Oxygen Delivery Method Room Air Room Air Positive well nourished and well developed Constitutional Narrative: Patient rolling around the bed stating he is just very nauseous General Appearance ED: well developed; Negative for pallor HEENT Reports dry mucous membranes Mouth ED: Yes dry mucous membranes Mouth: dry mucous membranes Eyes PERRL Neck supple and no JVD Chest Wall inspection of chest normal and palpation of chest normal Resp normal respiratory effort and clear to auscultation bilaterally Cardio regular rate and regular rhythm GI non-tender GI Narrative: Mildly distended abdomen. Is soft. No fluid wave. No increased tympany present. Auscultation: hypoactive bowel sounds Palpation: soft; Negative for tender or guarding Back/Spine no CVA tenderness Extremity normal to inspection Extremity Narrative: 2+ radial and DP pulses present General Extremety ED: Negative for edema or tenderness General Extremity: Negative for edema Neuro oriented x3 Sensorium / Orientation: alert Motor Exam: Negative for general weakness Psych Mood & Affect: anxious Skin no rashes or lesions noted General Skin Exam: Negative for jaundice or pallor MDM MDM MDM Narrative Medical decision making narrative: Patient evaluated for 3 days of GI symptoms that started with diarrhea and progressive nausea and vomiting. Explained feeling his abdomen is distended and very nauseous but he denies any specific abdominal pain on my initial exam. He does note that since vomiting he has discomfort in his chest as well. Differential include small bowel obstruction, gastroenteritis, volvulus, Boerhaave syndrome, urinary tract infection, pancreatitis and diverticulitis. Patient's vital signs are normal in the emergency room. As he is not having any significant pain low suspicion for acute ischemia. CBC shows a mild leukocytosis of 12.1 but otherwise largely normal. CMP largely normal. Lactate is added on which is normal. High-sensitivity troponin normal with no uptrend. Urinalysis does show 15 ketones but otherwise normal. Given his leukocytosis and worsening abdominal discomfort while in the emergency room CT abdomen pelvis is added on which shows some minimal fullness of the left renal pelvis but otherwise does not show any acute process. Patient has had some slight urinary retention in the emergency room but is able to urinate. Is been off of his Flomax needs a refill. Has an appointment see urology this coming Tuesday. I do not think you need to straight cath at this time so she does not have urinary tract infection and this is more of a chronic issue. 's patient is initially given Zofran and 1 IV fluids. He continues to have nausea and is then given droperidol. He is given a small dose of morphine for pain. He has further nausea but is improving is then given a dose of Compazine. On repeat evaluation patient states he is feeling better and is only mildly nauseous. Will be given p.o. challenge and if he tolerates this will be discharged home with nausea medication as well as short course of Flomax until he can get a full refill from his urologist. If he does not tolerate p.o. can be admitted for intractable nausea and vomiting. Patient reevaluated. Tolerate sips of water. Would like to try to go home. Is offered admission as he states he feels nauseous still has not vomited further. He again states that he would prefer to go home and will return if his symptoms worsen. I will send prescription for oral Phenergan, ODT Zofran as well as Phenergan suppositories and also a short refill of his Flomax. Lab Data Attestation: I reviewed the patient's lab results. Labs: Laboratory Results - last 24 hr 08/16/24 08/16/24 08/16/24 12:00 13:46 14:26 WBC 12.1 H RBC 4.94 Hgb 14.7 Hct 43.6 MCV 88.3 MCH 29.8 MCHC 33.7 RDW Std Deviation 42.7 RDW Coeff of Oliver 13.2 Plt Count 164 MPV 10.4 Immature Gran % (Auto) 0.800 Neut % (Auto) 84.1 H Lymph % (Auto) 9.5 L [place] % (Auto) 5.2 Eos % (Auto) 0.2 Baso % (Auto) 0.2 Absolute Neuts (auto) 10.2 H Absolute Lymphs (auto) 1.15 Nucleated RBC % 0 Sodium 137 Potassium 3.5 Chloride 102 Carbon Dioxide 21.4 Anion Gap 14 BUN 18 Creatinine 0.99 Est GFR (MDRD) Non-Af 81 BUN/Creatinine Ratio 18.6 Glucose 130 H Lactic Acid Calcium 9.6 Total Bilirubin 0.39 Direct Bilirubin 0.15 AST 22 ALT 25 Alkaline Phosphatase 71 Troponin T High Sens 9 Troponin T Hi Sens 2 Hr 9 Troponin T Hi Sens 4Hr Total Protein 7.2 Albumin 4.2 Globulin 3.0 Lipase 61 Urine Color Yellow Urine Clarity Clear Urine pH 7.0 Ur Specific Hydro 1.010 Urine Protein Negative Urine Glucose (UA) Normal Urine Ketones 15 H Urine Occult Blood Negative Urine Nitrite Negative Urine Bilirubin Negative Urine Urobilinogen Normal Ur Leukocyte Esterase Negative Urine RBC 0 SEEN Urine WBC 0 SEEN Ur Squamous Epith Cells 0 SEEN Urine Bacteria 0 SEEN Urine Mucus 0 SEEN 08/16/24 15:55 WBC RBC Hgb Hct MCV MCH MCHC RDW Std Deviation RDW Coeff of Oliver Plt Count MPV Immature Gran % (Auto) Neut % (Auto) Lymph % (Auto) [place] % (Auto) Eos % (Auto) Baso % (Auto) Absolute Neuts (auto) Absolute Lymphs (auto) Nucleated RBC % Sodium Potassium Chloride Carbon Dioxide Anion Gap BUN Creatinine Est GFR (MDRD) Non-Af BUN/Creatinine Ratio Glucose Lactic Acid 1.8 Calcium Total Bilirubin Direct Bilirubin AST ALT Alkaline Phosphatase Troponin T High Sens Troponin T Hi Sens 2 Hr Troponin T Hi Sens 4Hr 11 Total Protein Albumin Globulin Lipase Urine Color Urine Clarity Urine pH Ur Specific Hydro Urine Protein Urine Glucose (UA) Urine Ketones Urine Occult Blood Urine Nitrite Urine Bilirubin Urine Urobilinogen Ur Leukocyte Esterase Urine RBC Urine WBC Ur Squamous Epith Cells Urine Bacteria Urine Mucus Radiography Diagnostic Testing: Clinical Impression(s) from Imaging Studies Abdomen/Pelvis CT 08/16/24 13:40 IMPRESSION: Stable heterogeneous enlargement of the prostate with indentation of the bladder base. Sigmoid diverticulosis. Minimal fullness of the left renal pelvis. Stable hepatic cysts. OVERALL FINAL ASSESSMENT: . LI-RADS is not meant to be used in patients <18 years or patients with cirrhosis due to congenital hepatic fibrosis or due to vascular disorders, because these patients have a lower chance of developing HCC. Reading Location: [id number] Rhythm Strip Rhythm Strip: Sinus Rhythm Rate: 67 Ectopy: None EKG Initial EKG: Attestation: I personally reviewed and interpreted this EKG as follows: Interpretation: Sinus Rhythm Comments: Normal sinus rhythm rate of 67 bpm Normal axis Normal intervals Normal ST segments Discharge Plan Triage Chief Complaint: Nausea/Vomiting/Diarrhea ED Provider: Colette Eduardo Dx/Rx/DC Orders Clinical Impression: Nausea vomiting and diarrhea, Abdominal pain Instructions: ED Symptoms Uncertain Cause, ED Vomit & Diarrhea Nonspec Adult Prescriptions: New tamsulosin [Flomax] 0.4 mg capsule 0.4 mg PO DAILY Qty: 7 0RF promethazine 25 mg tablet 25 mg PO Q6H PRN (Reason: nausea and vomiting) Qty: 10 0RF promethazine 12.5 mg suppository 12.5 mg HI TID PRN (Reason: nausea and vomiting) Qty: 6 0RF Rx Instructions: 3 doses during day; last dose no later than 4 hr before bedtime dicyclomine 10 mg capsule 20 mg PO TIDAC PRN (Reason: abdominal pain) Qty: 20 0RF No Action saw palmetto 1 cap PO DAILY tamsulosin [Flomax] 0.4 mg capsule 0.4 mg PO DAILY finasteride 5 mg tablet 5 mg PO 1700 cholecalciferol (vitamin D3) [Vitamin D3] 25 mcg (1,000 unit) tablet 1,000 unit PO QDAY omeprazole 20 mg capsule,delayed release(DR/EC) 20 mg PO DAILY ascorbic acid (vitamin C) [Acerola C] 500 mg tablet,chewable 500 mg PO DAILY Xarelto 20 mg tablet 20 mg PO DAILY Qty: 90 3RF Rx Instructions: must administer with evening meal Primary Care Provider: Care Physician,No Primary Referrals: Azael Babb MD [Med Staff - Active Staff] - Care Physician,No Primary [Primary Care Provider] - Activity Restrictions/Additional Instructions: Take small frequent sips of fluid at home. Advance your diet slowly as tolerated. If you have decreased urine output, difficulty urinating or further symptoms please do not hesitate to return to the emergency room. Print Language: Chinese Disposition Disposition: Home, Self Care
[2024-08-16 12:56] LABS: AST(SGOT) 22 U/L (<=37); Alanine Aminotransfer ALT/SGPT 25 U/L (<=46); Albumin, Serum 4.2 g/dL (3.4-4.8); Alkaline Phosphatase 71 U/L (40-129); Anion Gap 14 (5-15); BUN 18 mg/dL (4-19); BUN/Creat Ratio 18.6 RATIO (10-20); Bilirubin, Direct 0.15 mg/dL (0.00-0.30); Calcium,Total 9.6 mg/dL (7.6-11.0); Carbon Dioxide 21.4 mmol/L (21.0-32.0); Chloride 102 mmol/L (98-108); Creatinine, Serum 0.99 mg/dL (0.70-1.20); EST Glomerular Filtration Rate 81 (>60); Glucose 130 mg/dL (70-99); Lipase 61 U/L (13-75); Potassium 3.5 mmol/L (3.3-5.1); Protein, Total 7.2 g/dL (5.9-8.4); Sodium Level 137 mmol/L (133-145); Total Bilirubin 0.39 mg/dL (0.00-1.30)
[2024-08-16 13:09] LABS: Troponin T High Sensitivity 9 ng/L (<=22)
[2024-08-16 13:38] VITALS: BP 118/53; PULSE 68; RESP 17; O2SAT 98
--- NOTE | 2024-08-16 13:40 | CT_ITS ---
PROCEDURE: ABDOMEN/PELVIS W IV CONT ONLY 08/16/2024 REASON FOR EXAM: ABD PAIN, N/V/D 3 day history. TECHNIQUE: Abdomen and pelvis CT with intravenous contrast. Coronal and Sagittal reconstruction series were provided. PATIENT PREPARATION: Per protocol ORAL CONTRAST TYPE: None. CONTRAST: Isovue-300 VOLUME: 100 mL One or more dose reduction techniques were used (e.g., Automated exposure control, adjustment of the mA and/or kV according to patient size, use of iterative reconstruction technique. RADIATION DOSE SUMMARY: CTDlvol: 17.5 mGy DLP: 1656.34 mGycm COMPARISON: Prior study dated April 13, 2024. FINDINGS: Lung bases: Unremarkable. Hiatal hernia. Minimal coronary artery calcification. Liver: Stable appearance of the hepatic cysts. The largest cyst is in the left lobe of the liver and measures 6 cm. Gallbladder: Unremarkable Spleen: Normal size. Pancreas: Normal size without evidence of mass surrounding inflammation or ductal dilation. Adrenals: Unremarkable Kidneys: Stable small bilateral renal cysts. Mild degree of left hydronephrosis. Bladder: The urinary bladder is distended. Heterogeneous in enlargement of the prostate gland with indentation of the bladder base. Bowel: Colonic diverticulosis without diverticulitis. Appendix: Unremarkable Lymph nodes: Unremarkable Vasculature: Mild diffuse atherosclerotic calcifications are noted. Peritoneum / Retroperitoneum: Prior anterior ventral hernia repair with a mesh as well as lower pelvic wall as well. Bones: Degenerative changes of the spine. CT/Abdomen/Pelvis W IV Cont ONLY IMPRESSION: Stable heterogeneous enlargement of the prostate with indentation of the bladde r base. Sigmoid diverticulosis. Minimal fullness of the left renal pelvis. Stable hepatic cysts. OVERALL FINAL ASSESSMENT: . LI-RADS is not meant to be used in patients <18 years or patients with cirrhosi s due to congenital hepatic fibrosis or due to vascular disorders, because these patients have a lower chance of developing HC C. Reading Location: [facility]
[2024-08-16] MEDS: Haloperidol Lactate 5 MG/ML Vial 1 MG IV (13:50)
[2024-08-16 14:02] LABS: Bacteria 0 SEEN /hpf (None Seen); Mucous, Urine 0 SEEN /hpf (<or=2+); Red Blood Cells-Urine 0 SEEN /hpf (0-5); Squamous Epithelial Cells - UA 0 SEEN /hpf (0-5); White Blood Cells 0 SEEN /hpf (0-5)
[2024-08-16 14:12] LABS: Color, Urine Yellow (Yellow); Glucose, Dipstick Normal (Normal); Ketone-Dipstick 15 mg/dl (Negative); Leukocyte Esterase-Dipstick Negative /ul (Negative); Nitrite-Dipstick Negative (Negative); Occult Blood-Urine Negative /ul (Negative); Protein-Dipstick Negative (Negative); Urine Bilirubin Dipstick Negative (Negative); Urine Clarity Clear (Clear); Urine Urobilinogen Normal (Normal)
[2024-08-16 15:00] VITALS: BP 122/56; PULSE 69; RESP 17; O2SAT 98
[2024-08-16 15:11] LABS: Troponin T High Sens 2 HR 9 ng/L (<=22)
[2024-08-16] MEDS: proCHLORPERazine 10 MG/2 ML Vial 5 MG IV (15:20)
[2024-08-16] MEDS: Morphine 4 MG/ML Syringe IV (15:21)
[2024-08-16 16:36] LABS: Lactic Acid 1.8 mmol/L (0.0-2.0)
[2024-08-16 16:40] LABS: Troponin T High Sens 4 HR 11 ng/L (<=22)
[2024-08-16 17:00] VITALS: BP 121/78; PULSE 71; RESP 18; O2SAT 97
[2024-08-16] MEDS: proMETHazine 25 MG Tablet PO (17:36)
[2024-08-16 17:41] VITALS: BP 136/78; PULSE 67; RESP 18; TEMP 36.4; O2SAT 98
== END 2024-08-16 17:42 | disposition home or self-care (01) ==
PROVIDERS: Emergency Provider Emergency Medicine; Visit Provider Emergency Medicine
DX: R11.2 Nausea with vomiting, unspecified (principal); R10.9 Unspecified abdominal pain; I25.10 Atherosclerotic heart disease of native coronary artery without angina pectoris; R33.9 Retention of urine, unspecified; R19.7 Diarrhea, unspecified; Z79.01 Long term (current) use of anticoagulants; Z85.46 Personal history of malignant neoplasm of prostate; K57.30 Diverticulosis of large intestine without perforation or abscess without bleeding; R53.1 Weakness; R07.9 Chest pain, unspecified; E78.5 Hyperlipidemia, unspecified; K21.9 Gastro-esophageal reflux disease without esophagitis
CPT/HCPCS: 74177; 80048; 80076; 81001; 83605; 83690; 84484; 85025; 93005; 99284; Q9967; A4216; J2405

== ENCOUNTER → 2024-08-30 | Outpatient (CLI) | payer MEDICARE, SELFPAY ==
[2024-08-30 13:30] LABS: Anion Gap 11 (5-15); BUN 26 mg/dL (4-19); BUN/Creat Ratio 20.9 RATIO (10-20); Calcium,Total 9.6 mg/dL (7.6-11.0); Carbon Dioxide 24.1 mmol/L (21.0-32.0); Chloride 102 mmol/L (98-108); Creatinine, Serum 1.22 mg/dL (0.70-1.20); EST Glomerular Filtration Rate 63 (>60); Glucose 105 mg/dL (70-99); Magnesium 2.1 mg/dL (1.5-2.2); Potassium 4.3 mmol/L (3.3-5.1); Sodium Level 137 mmol/L (133-145)
== END | disposition home or self-care (01) ==
LOC: LAB 11:22
PROVIDERS: Referring Provider Internal Medicine Cardiovascular Disease; Visit Provider Internal Medicine Cardiovascular Disease
DX: I48.0 Paroxysmal atrial fibrillation (principal); I48.92 Unspecified atrial flutter; I47.20 Ventricular tachycardia, unspecified; E86.0 Dehydration
CPT/HCPCS: 36415; 80048; 83735

== ENCOUNTER → 2024-11-13 | Outpatient (CLI) | payer MEDICARE, SELFPAY ==
--- NOTE | 2024-11-13 12:40 | ECHOD_ITS ---
Reason For Study Reason For Study: CARDIOMYOPATHY Procedure This was a 2D Doppler, Color Flow transthoracic echocardiogram. Exam performed in department. Left Ventricle Normal left ventricle. The left ventricular ejection fraction is 60 %. Stage 1 diastolic dysfunction. No regional wall motion abnormalities noted. Right Ventricle Normal RV size. Normal systolic function. Atria Normal left atrium. Normal right atrium. Mitral Valve Normal mitral valve. Tricuspid Valve Normal tricuspid valve. Mild (1+) tricuspid valve insufficiency. Pulmonary artery systolic pressure is 30 mmHg. Aortic Valve Trisinus/trileaflet aortic valve. Normal aortic valve. Mild (1+) aortic valve insufficiency. Pulmonic Valve Normal pulmonic valve. Great Vessels Normal aortic root. The pulmonary artery is normal size. Inferior vena cava collapse with respiration. Pericardium/Pleural No pericardial effusion. MMode/2D Measurements & Calculations LVIDd: 4.4 cm IVSd: 0.92 cm Ao root diam: 3.3 cm LVIDs: 3.1 cm LVPWd: 0.87 cm RVDd: 3.7 cm FS: 29.5 % LAV(MOD-bp): 35.7 ml LVAd ap4: 30.6 cm2 SV(MOD-sp4): 51.1 ml LAV(MOD-bp) Indexed: 17.4 ml/m2 LVLd ap4: 8.6 cm SI(MOD-sp4): 24.9 ml/m2 LAV(MOD-sp2): 35.2 ml EDV(MOD-sp4): 88.2 ml LAV(MOD-sp4): 36.0 ml EDV(sp4-el): 92.1 ml LVAs ap4: 17.4 cm2 LVLs ap4: 7.0 cm ESV(MOD-sp4): 37.2 ml ESV(sp4-el): 36.7 ml EF(MOD-sp4): 57.9 % EF(sp4-el): 60.2 % SV(sp4-el): 55.4 ml LA A4 area: 15.7 cm2 LA dimension(2D): 3.5 cm RA A4 area: 14.6 cm2 TAPSE: 2.3 cm Time Measurements MV dec time: 0.33 sec Doppler Measurements & Calculations MV E max francis: 44.9 cm/sec Lat Peak E' Francis: 12.7 cm/sec Med Peak E' Francis: 8.2 cm/sec MV A max francis: 61.9 cm/sec E/E' lat: 3.5 E/E' med: 5.5 MV E/A: 0.73 Ao V2 max: 116.0 cm/sec AI max francis: 444.1 cm/sec LV V1 max: 83.8 cm/sec Ao max P.4 mmHg AI max P.9 mmHg LV V1 max P.8 mmHg AI dec slope: 209.2 cm/sec2 AI P1/2t: 621.9 msec PA V2 max: 77.9 cm/sec TR max francis: 254.5 cm/sec TR max P.9 mmHg ECHO/Echo Complete Interpretation Summary Normal left ventricle. The left ventricular ejection fraction is 60 %. Stage 1 diastolic dysfunction. Liver cyst noted Ordering Physician: Toya Caldwell Referring Physician: Toya Caldwell Performed By: Naa Mckeon RDCS
== END | disposition home or self-care (01) ==
LOC: CVS 12:37
PROVIDERS: Referring Provider Internal Medicine Cardiovascular Disease; Visit Provider Internal Medicine Cardiovascular Disease
DX: I70.0 Atherosclerosis of aorta (principal); I42.9 Cardiomyopathy, unspecified; I35.1 Nonrheumatic aortic (valve) insufficiency; Z86.79 Personal history of other diseases of the circulatory system
CPT/HCPCS: 93306

== ENCOUNTER → 2025-02-19 | Outpatient (CLI) | payer MEDICARE, SELFPAY ==
[2025-02-19 13:48] LABS: PSA,Total- Diagnostic 4.88 ng/mL (0.00-4.00)
== END | disposition home or self-care (01) ==
LOC: LAB 12:00
PROVIDERS: Referring Provider Urology; Visit Provider Urology
DX: C61 Malignant neoplasm of prostate (principal)
CPT/HCPCS: 36415; 84153